=== PATIENT | female | born 1995 | race Caucasian/White ===

== ENCOUNTER 2016-11-20 10:12 | Emergency (ER) | payer OTHER ==
[~2016-11-20] VITALS: Ht 172.7 cm; Wt 89.0 kg
[~2016-11-20 10:12] MED LIST: ACET1TAB40 PO; ALBU8.5H3 IH; CEPH-443 PO
[2016-11-20 10:23] VITALS: Ht 172.7 cm; Wt 89.0 kg
[2016-11-20] MEDS ORDERED: AMO500 PO (11:12)
--- NOTE | 2016-11-20 11:16 | ERD ---
ER Documentation Chief Complaint Date/Time DATE: 11/20/16 TIME: 11:[address] , RT EAR PAIN X 2 WEEKS HPI This is a 21-year-old female presenting to the emergency department complaining of right ear pain for the past 2 weeks which has worsened in this past week. She rates the pain 6 out of 10 and describes as constant with associated decreased hearing. Patient denies any discharge. Patient also states that she has a sore throat. She admits to cough and congestion. Denies any fevers. She has not taken any medications for this ROS All systems reviewed and are negative except as per history of present illness. Medications Home Meds Active Scripts Amoxicillin* (Amoxicillin*) 500 Mg Cap, 500 MG PO BID for 10 Days, CAP Prov:YENNI DELACRUZC 11/20/16 Acetaminophen-Codeine* (Acetaminophen-Cod #3*) 300-30 Mg Tab, 1 TAB PO Q4H Y for PAIN, #10 TAB Prov:CONOR CAPUTO NP 12/21/14 Cephalexin* (Keflex*) 500 Mg Capsule, 500 MG PO TID for 7 Days, CAP Prov:BARTOLOME MENJIVARC 12/20/14 Reported Medications Albuterol Sulfate* (Proair HFA*) 8.5 Gm Hfa.aer.ad, 8.5 GM IH 10/29/11 Allergies Allergies: Coded Allergies: Vitamins (Verified Allergy, Severe, RASH/SWELLING-FACE/BACK/ STOMACH/DYSPNEA, 01/16/14) Vitamins Comb No.58 (Verified Allergy, Severe, RASH/SWELLING-FACE /BACK/STOMACH/DYSPNEA, 01/16/14) Vits w-Ca,Fe,FA(1mg) (Verified Allergy, Severe, RASH/SWELLING- FACE/BACK/STOMACH/DYSPNEA, 01/16/14) ferrous bis-glycinate chelate (Verified Allergy, Severe, RASH/SWELLING- FACE/BACK/STOMACH/DYSPNEA, 01/16/14) ferrous fumarate (Verified Allergy, Severe, RASH/SWELLING-FACE/BACK/ STOMACH/DYSPNEA, 01/16/14) ferrous sulfate (Verified Allergy, Severe, RASH/SWELLING-FACE/BACK/STOMACH /DYSPNEA, 01/16/14) folic acid (Verified Allergy, Severe, RASH/SWELLING-FACE/BACK/STOMACH/ DYSPNEA, 01/16/14) vitamins comb no.95 (Verified Allergy, Severe, RASH/SWELLING-FACE /BACK/STOMACH/DYSPNEA, 01/16/14) Uncoded Allergies: ALLERGIC TO PORK, PEANUT (Allergy, Intermediate, RASH, 10/14/12) PMhx/Soc History of Surgery: Yes ("NOSE SURG" 2001) Anesthesia Reaction: No Hx Neurological Disorder: No Hx Cardiac Disorders: No Hx Psychiatric Problems: No Hx Miscellaneous Medical Probl: No Hx Alcohol Use: No Hx Substance Use: No Hx Tobacco Use: No Physical Exam Vitals Vital Signs Date Time Temp Pulse Resp B/P Pulse Ox O2 Delivery O2 Flow Rate FiO2 11/20/16 10:23 98.0 89 18 116/65 100 Physical Exam GENERAL: well-developed/well-nourished, in no apparent distress, non-toxic appearing HEAD: NC/AT, no swelling noted in frontal or maxillary areas EARS: Right tympanic membrane is erythematous NARES:congested THROAT: oropharynx erythematous without exudates, no tonsil enlargement, post nasal drip EYES: Conjunctiva normal NECK: Supple, no lymphadenopathy PULM: CTA bilaterally, no rales, rhonchi, or wheezing heard CV: Normal S1S2, RRR, good capillary refill GI: Soft, non-distended, normal bowel sounds, non-tender BACK: No midline tenderness, no masses EXT No clubbing, cyanosis, or edema NEURO: Alert and Orientated SKIN: Intact, normal turgor PSYCH: Normal mood and mentation Procedures/MDM This is a 21-year-old female presenting to the emergency department complaining of right ear pain and sore throat. This is likely a viral upper respiratory infection with possible early acute otitis media. Patient will be empirically treated with amoxicillin. There was no evidence of strep pharyngitis, mastoiditis, for pneumonia, peritonsillar abscess. Patient is stable for discharge to home and follow-up with primary care physician. Discussed return to the ER for any worsening signs or symptoms. She understands and agrees with this plan Departure Diagnosis: Primary Impression: Otitis media Additional Impression: Pharyngitis Condition: Stable Patient Instructions: Otitis Media, Abx Tx (Adult), Pharyngitis, Viral Additional Instructions: FOLLOW UP WITH YOUR PRIMARY CARE PHYSICIAN TOMORROW.Return to this facility if you are not improving as expected. Take all medicines as directed. Return to this facility if you are not improving as expected. YENNI DELACRUZ PA-C November 20, 2016 11:16
== END 2016-11-20 11:26 | disposition home or self-care (01) ==
LOC: FTE 10:12
DX: H66.91 Otitis media, unspecified, right ear (principal); J45.909 Unspecified asthma, uncomplicated
CPT/HCPCS: 99283